=== PATIENT | male | born 1985 | race Caucasian/White ===

== ENCOUNTER 2024-04-29 07:42 | Emergency (ER) | payer OTHER, SELFPAY ==
[~2024-04-29] VITALS: Ht 175.3 cm; Wt 127.6 kg
[2024-04-29] MEDS: ENOXAPARIN 40MG/0.4ML SYRINGE (J1650 PER 10MG) SC SCH (09:00)
[2024-04-29] MEDS: LABETALOL 100MG/20ML VIAL IV STA (09:29)
[2024-04-29] MEDS: ACETAMINOPHEN 325 MG TAB PO ONE (09:29)
[2024-04-29 09:50] LABS: BASO # 0.1 10^3/uL (0.0-0.2); EOS # 0.2 10^3/uL (0.0-0.5); EOS % 2.3 % (0.0-3.0); HEMATOCRIT 44.2 % (42.0-52.0); HEMOGLOBIN 15.7 g/dl (13.5-17.5); LYMPH # 2.9 10^3/uL (1.5-5.0); LYMPH % 35.9 % (24.0-44.0); MEAN CORPUSCULAR HEMOGLOBIN 31.2 pg (27.0-33.0); MEAN CORPUSCULAR HGB CONC 35.5 g/dl (32.0-36.5); MEAN CORPUSCULAR VOLUME 87.9 fl (80.0-96.0); MONO # 0.6 10^3/uL (0.0-0.8); MONO % 7.4 % (2.0-8.0); NEUTROPHILS # 4.3 10^3/uL (1.5-8.5); NEUTROPHILS % 52.9 % (36.0-66.0); PLATELET COUNT, AUTOMATED 302 10^3/uL (150-450); RED BLOOD COUNT 5.03 10^6/uL (4.30-6.10); WHITE BLOOD COUNT 8.1 10^3/uL (4.0-10.0)
[2024-04-29 10:02] LABS: INR 1.04; PARTIAL THROMBOPLASTIN TIME 23.9 SECONDS (24.8-34.2); PROTHROMBIN TIME 13.3 SECONDS (12.5-14.5)
[2024-04-29 10:11] LABS: ALBUMIN 3.6 G/DL (3.2-5.2); ALKALINE PHOSPHATASE 96 U/L (46-116); ALT/SGPT 57 U/L (7.0-40); AST/SGOT 37 U/L (<34); BILIRUBIN,TOTAL 0.7 MG/DL (0.3-1.2); BLOOD UREA NITROGEN 16 MG/DL (9-23); CALCIUM LEVEL 8.7 MG/DL (8.5-10.1); CARBON DIOXIDE LEVEL 21 MMOL/L (20-31); CHLORIDE LEVEL 106 MMOL/L (98-107); CK-MB VALUE MASS 1.1 NG/ML (<3.6); CPK CREATINE PHOSPHOKINASE 197 U/L (46-171); CREATININE FOR GFR 0.77 MG/DL (0.70-1.30); GLOMERULAR FILTRATION RATE > 60.0 (>60); GLUCOSE, FASTING 123 MG/DL (60-100); MB/CK RELATIVE INDEX 0.55 (< OR =4); POTASSIUM SERUM 4.8 MMOL/L (3.5-5.1); SODIUM LEVEL 139 MMOL/L (136-145); TOTAL PROTEIN 6.9 G/DL (5.7-8.2)
[2024-04-29 10:20] LABS: APPEARANCE, URINE CLEAR (CLEAR); BACTERIA, URINE AUTO NEGATIVE (NEGATIVE); BILIRUBIN, URINE AUTO NEGATIVE (NEGATIVE); BLOOD, URINE BLOOD NEGATIVE (NEGATIVE); COLOR, URINE YELLOW (YELLOW); GLUCOSE, URINE (UA) AUTO NEGATIVE (NEGATIVE); KETONE, URINE AUTO NEGATIVE (NEGATIVE); LEUKOCYTE ESTERASE, URINE AUTO NEGATIVE (NEGATIVE); MUCUS, URINE SMALL (NEGATIVE); NITRITE, URINE AUTO NEGATIVE (NEGATIVE); PROTEIN, URINE AUTO 1+ mg/dL (NEGATIVE); RBC, URINE AUTO 0 /HPF (0-3); SQUAMOUS EPITHELIAL CELL UR AU 0 /HPF (0-6); UROBILINOGEN, URINE AUTO 0.2 mg/dL (0.0-2.0); WBC, URINE AUTO 1 /HPF (0-3)
[2024-04-29] MEDS: KETOROLAC 30 MG/ML 1ML VIAL IV ONE (11:57)
[2024-04-29] MEDS: **hydrALAZINE HCL** 25 MG TAB PO ONE (11:57)
[2024-04-29] MEDS ORDERED: HOME MED LIST COMPLETE! XX SCH (12:10)
[2024-04-29 16:00] VITALS: BP 190/105; TEMP 97; O2SAT 96
[2024-04-29] MEDS ORDERED: hydrALAZINE 20MG/ML 1ML VIAL IV STA (16:19)
[2024-04-29] MEDS ORDERED: **hydrALAZINE** 10 MG TAB PO STA (16:27)
[2024-04-29] MEDS: ACETAMINOPHEN TAB 650MG DOSE (2X325MG) PO SCH (17:06)
[2024-04-29] MEDS: **hydrALAZINE** 50 MG TAB PO SCH (17:10)
[2024-04-29 17:30] VITALS: BP 188/98
[2024-04-29] MEDS ORDERED: **hydrALAZINE HCL** 25 MG TAB PO SCH (18:00)
[2024-04-29 18:45] VITALS: BP 172/92
[2024-04-29 20:05] VITALS: BP 178/92; TEMP 98.2; O2SAT 97
[2024-04-29] MEDS: KETOROLAC 30 MG/ML 1ML VIAL IV SCH (20:09)
[2024-04-29] MEDS: **hydrALAZINE** 50 MG TAB PO ONE (20:11)
[2024-04-29 21:53] VITALS: BP 180/90
[2024-04-30] VITALS (9 sets, daily range): BP systolic 169–191; BP diastolic 95–116; TEMP 97.3–98.4; O2SAT 95–98
[2024-04-30] MEDS: METOPROLOL TART 25 MG TABLET PO ONE (01:20)
[2024-04-30] MEDS: **hydrALAZINE** 50 MG TAB PO SCH (05:24)
[2024-04-30 06:42] LABS: BASO # 0.1 10^3/uL (0.0-0.2); EOS # 0.3 10^3/uL (0.0-0.5); EOS % 3.3 % (0.0-3.0); HEMATOCRIT 43.6 % (42.0-52.0); HEMOGLOBIN 15.4 g/dl (13.5-17.5); LYMPH # 2.8 10^3/uL (1.5-5.0); LYMPH % 31.5 % (24.0-44.0); MEAN CORPUSCULAR HEMOGLOBIN 31.3 pg (27.0-33.0); MEAN CORPUSCULAR HGB CONC 35.3 g/dl (32.0-36.5); MEAN CORPUSCULAR VOLUME 88.6 fl (80.0-96.0); MONO # 0.7 10^3/uL (0.0-0.8); MONO % 7.5 % (2.0-8.0); NEUTROPHILS # 4.9 10^3/uL (1.5-8.5); NEUTROPHILS % 56.2 % (36.0-66.0); PLATELET COUNT, AUTOMATED 322 10^3/uL (150-450); RED BLOOD COUNT 4.92 10^6/uL (4.30-6.10); WHITE BLOOD COUNT 8.8 10^3/uL (4.0-10.0)
[2024-04-30 07:11] LABS: ALBUMIN 3.2 G/DL (3.2-5.2); ALKALINE PHOSPHATASE 95 U/L (46-116); ALT/SGPT 64 U/L (7.0-40); AST/SGOT 22 U/L (<34); BILIRUBIN,TOTAL 0.6 MG/DL (0.3-1.2); BLOOD UREA NITROGEN 15 MG/DL (9-23); CALCIUM LEVEL 8.8 MG/DL (8.5-10.1); CARBON DIOXIDE LEVEL 24 MMOL/L (20-31); CHLORIDE LEVEL 107 MMOL/L (98-107); CHOLESTEROL LEVEL 205 MG/DL (<200); CHOLESTEROL RISK RATIO 6.04 (<5); CREATININE FOR GFR 0.82 MG/DL (0.70-1.30); GLOMERULAR FILTRATION RATE > 60.0 (>60); GLUCOSE, FASTING 136 MG/DL (60-100); HDL CHOLESTEROL 33.9 MG/DL (>40); LDL CHOLESTEROL 117.3 MG/DL (<100); MAGNESIUM LEVEL 1.9 MG/DL (1.8-2.4); NON-HDL-C 171.1 MG/DL; SODIUM LEVEL 139 MMOL/L (136-145); TOTAL PROTEIN 6.3 G/DL (5.7-8.2); TRIGLYCERIDES LEVEL 269 MG/DL (<150)
[2024-04-30 07:55] LABS: HEMOGLOBIN A1c 5.9 % (4.0-6.0)
[2024-04-30] MEDS ORDERED: LISINOPRIL *2.5 MG* TAB PO SCH (09:00)
[2024-04-30] MEDS ORDERED: diphenhydrAMINE 25MG CAP PO ONE (11:00)
[2024-04-30] MEDS ORDERED: METOCLOPRAMIDE INJ 10MG/2ML VIAL IV ONE (11:15)
[2024-04-30] MEDS ORDERED: PILL CUTTER 1 EACH XX PRN (11:40)
[2024-04-30] MEDS: MAG SULF 1GM/100ML (MAG RUN) 1 GM in IV 1 EA IV ONE (12:23)
[2024-04-30] MEDS: LOSARTAN 25 MG TAB PO SCH (12:23)
[2024-04-30] MEDS: VALPROATE SOD INJ 1,000 MG in D5W 50 ML IV ONE (14:12)
[2024-04-30] MEDS ORDERED: ATORVASTATIN 20 MG TAB PO SCH (21:00)
[2024-04-30] MEDS: ATORVASTATIN 20 MG TAB PO SCH (21:03)
[2024-05-01] VITALS (7 sets, daily range): BP systolic 165–174; BP diastolic 91–102; TEMP 97.4–98.8; O2SAT 94–97
[2024-05-01] MEDS: ACETAMINOPHEN 500 MG TAB PO PRN (03:22)
[2024-05-01 06:37] LABS: BLOOD UREA NITROGEN 11 MG/DL (9-23); CALCIUM LEVEL 8.9 MG/DL (8.5-10.1); CARBON DIOXIDE LEVEL 26 MMOL/L (20-31); CHLORIDE LEVEL 107 MMOL/L (98-107); GLOMERULAR FILTRATION RATE > 60.0 (>60); GLUCOSE, FASTING 125 MG/DL (60-100); POTASSIUM SERUM 4.1 MMOL/L (3.5-5.1); SODIUM LEVEL 138 MMOL/L (136-145)
[2024-05-01] MEDS: LOSARTAN 25 MG TAB PO SCH (08:43)
[2024-05-01] MEDS ORDERED: VALPROATE SOD INJ 500 MG in D5W MINI-BAG PLUS 50 ML IV ONE (11:10)
[2024-05-01] MEDS: VALPROATE SOD INJ 500 MG in D5W MINI-BAG PLUS 50 ML IV ONE (12:13)
[2024-05-01] MEDS ORDERED: VALPROATE SOD INJ 500 MG in D5W 50 ML IV ONE (13:00)
[2024-05-01] MEDS: hydroCHLOROthiazide 12.5 MG CAPSULE PO SCH (16:02)
[2024-05-01] MEDS: ACETAMINOPHEN TAB 650MG DOSE (2X325MG) PO PRN (21:47)
[2024-05-02] MEDS: KETOROLAC 60MG 2ML VIAL IM ONE (00:04)
[2024-05-02] MEDS: LOSARTAN 25 MG TAB PO ONE (00:04)
[2024-05-02 00:30] VITALS: BP 186/108; TEMP 98.4; O2SAT 95
[2024-05-02 04:00] VITALS: BP 170/98; TEMP 98.1; O2SAT 97
[2024-05-02 06:50] LABS: BLOOD UREA NITROGEN 16 MG/DL (9-23); CARBON DIOXIDE LEVEL 26 MMOL/L (20-31); CHLORIDE LEVEL 107 MMOL/L (98-107); CREATININE FOR GFR 0.94 MG/DL (0.70-1.30); GLOMERULAR FILTRATION RATE > 60.0 (>60); GLUCOSE, FASTING 120 MG/DL (60-100); POTASSIUM SERUM 3.9 MMOL/L (3.5-5.1); SODIUM LEVEL 140 MMOL/L (136-145)
[2024-05-02 08:08] VITALS: BP 162/98
[2024-05-02] MEDS: LOSARTAN 50MG TABLET PO SCH (08:08)
[2024-05-02] MEDS: TOPIRAMATE (TopAMAX) 25 MG TAB PO SCH (08:08)
[2024-05-02 08:38] VITALS: BP 140/100; TEMP 97.9; O2SAT 96
[2024-05-02 10:16] VITALS: BP 150/70
[2024-05-02] MEDS ORDERED: HYDR-3490 PO (11:29)
[2024-05-02] MEDS ORDERED: TOPA1TAB PO (11:29)
[2024-05-02] MEDS ORDERED: ATOR1TAB21 PO (11:29)
[2024-05-02] MEDS ORDERED: AMLO1TAB25 PO (11:29)
[2024-05-02] MEDS ORDERED: LOSA-528 PO (11:29)
[2024-05-02 12:00] VITALS: BP 130/70; TEMP 97.3; O2SAT 98
== END 2024-05-02 15:00 | disposition home or self-care (01) ==
LOC: M ED 07:42 → M ED INP 07:43 → M MSPAV 16:00
PROVIDERS: ADMIT Student in an Organized Health Care Education/Training Program; ATTEND Student in an Organized Health Care Education/Training Program
DX: I16.1 Hypertensive emergency (principal); F17.290 Nicotine dependence, other tobacco product, uncomplicated
CPT/HCPCS: 36415; 70450; 80048; 80053; 80061; 81001; 82550; 82553; 83036; 83735; 84484; 85025; 85610; 85730; 93005; 93041; 96372; 99285; J1650; J1885; J1920; J3475